=== PATIENT | female | born 1955 | race Caucasian/White ===

== ENCOUNTER 2017-07-21 17:41 | Emergency (ER) | payer OTHER ==
[2017-07-21 17:54] VITALS: TEMP 98
--- NOTE | 2017-07-21 17:59 | EDPHY ---
H & P Time Seen by Provider: 07/21/17 17:45 HPI/ROS: HPI Fell from horse. Head injury. 62-year-old female by private vehicle with her . This patient was riding a horse at about 4:30 p.m.. This is a force that she is used to riding. She was thrown from the horse. She was wearing a helmet. She landed on her right buttock and hit the right side of her head on a dirt surface. She complains of a dull right sided headache and pain involving her right buttock area. No neck pain. She denies any loss of consciousness. No changes in vision. No back pain. No weakness or altered sensation in her extremities. No other complaint. She is not on any anticoagulants or antiplatelet agents. ROS: Constitutional: No fever, no chills. No weakness. Eyes: No discharge. No changes in vision. ENT: No sore throat. No nasal congestion or rhinorrhea. Respiratory: No cough. No shortness of breath. Cardiac: No chest pain, no palpitations. Gastrointestinal: No abdominal pain, no vomiting, no diarrhea. Genitourinary: No hematuria. No dysuria or increased frequency with urination. Musculoskeletal: No back pain. No neck pain. As above. Denies extremity pain other than noted. Skin: No rashes. Neurological: As above. No focal weakness or altered sensation. Past medical history: History of breast cancer with chemotherapy and bilateral mastectomies, anxiety and insomnia. 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 Social history: Nonsmoker. Here with her . No alcohol. Physical Exam: General Appearance: Alert, no distress. This patient is responding to questions appropriately and in full sentences. This patient appears well- hydrated and well-nourished. Head: Normocephalic atraumatic. I do not appreciate any hematoma or bony deformity or other abnormality. Face: Facial bones are stable on palpation. Eyes: Pupils equal and round and reactive to light, no pallor or injection. No lid erythema or edema. ENT, Mouth: Mucous membranes moist. Dentition is intact. No malocclusion of the jaw. No tongue lacerations or abrasions. Pharynx is clear. The bilateral nasal canals are clear. No septal hematoma. Respiratory: There are no retractions, lungs are clear to auscultation with good air movement bilaterally. Chest wall is stable to AP and lateral palpation. Cardiovascular: Regular rate and rhythm. No murmur. Gastrointestinal: Abdomen is soft and nontender, no masses, bowel sounds normal. Neurological: Motor sensory function is intact. Cranial nerves are normal. Cerebellar function intact. Skin: Warm and dry, no rashes. No lacerations, abrasions or contusions. Musculoskeletal: Neck is supple and nontender. The trachea is midline. No midline cervical, thoracic, lumbar or sacral tenderness on palpation. No flank tenderness on palpation. Some tenderness on palpation to the right upper lateral gluteal area. No ecchymosis or other soft tissue abnormalities noted. Extremities are symmetrical, full range of motion. All joints in the bilateral upper and bilateral lower extremities range without pain or impingement. No tenderness on palpation of the long bones in the bilateral upper and bilateral lower extremities. Psychiatric: No agitation. No depression. Database: EKG: Imaging: CT head without contrast: Negative. Results were discussed with staff radiologist Dr. Avinash Mackey. Right hip x-ray series: Negative for fracture, subluxation, dislocation. Interpreted by me. Procedures: Emergency department course: Vital signs reviewed. She is not requiring any pain medication at this time. She was sent for CT imaging and x-rays. 6:40 p.m., patient re-evaluated. Resting comfortably at this time. Results of CT scan and x-ray discussed with her. She is up and ambulatory without difficulty. She feels comfortable going home with her and I think she is safe for discharge. Follow-up and return to emergency department precautions reviewed. Head injury precautions reviewed. All of her questions were answered. She was discharged in good condition. Differential Diagnosis: The differential diagnosis on this patient includes but is not limited to head injury, possible concussion syndrome, right gluteal contusion. Traumatic brain injury, subdural hematoma, epidural hematoma, subarachnoid hemorrhage, cervical spine injury, hip fracture unlikely. This represents a partial list of diagnoses considered. These considerations are based on history, physical exam , past history, reassessment and diagnostic testing. Constitutional: Initial Vital Signs Temperature (C) 36.6 C 07/21/17 17:50 Heart Rate 87 07/21/17 17:50 Respiratory Rate 18 07/21/17 17:50 Blood Pressure 136/84 H 07/21/17 17:50 O2 Sat (%) 97 07/21/17 17:50 O2 Delivery Mode Room Air Allergies/Adverse Reactions: No Known Allergies Allergy (Unverified 06/25/13 13:23) Home Medications: Medication Instructions Recorded Ambien 5MG (RX) 06/25/13 Cyclobenzaprine [Flexeril 10 MG 5 mg PO TID #20 tab 06/25/13 (RX)] Ativan 07/21/17 Medical Decision Making - Diagnostics Imaging Results: Imaging Impressions Head CT 07/21/17 17:51 Impression: Normal. Findings and recommendations discussed with Jannet Baez MD at 1822 hour, 07/21/2017. Final report concurs with initial preliminary interpretation. Departure - Departure Disposition: Home, Routine, Self-Care Clinical Impression: Head injury, Right gluteal contusion Condition: Good Instructions: Head Injury (ED), Contusion in Adults (ED) Additional Instructions: Read and follow provided instructions. Follow-up with your primary care physician in 1-2 days for re-evaluation. Ibuprofen dosin mg every 6 hours with meals for the next 3 days only. Take only as needed for pain. Axtell/Percocet dosin-2 every 4-6 hours for pain[address] Do not drive on this medication. Return to the emergency department for worsening headache, confusion, vomiting, worsening pain, difficulty walking or other serious concerns. Referrals: NONE *PRIMARY CARE P,. [Primary Care Provider] - As per Instructions
[2017-07-21] MEDS ORDERED: OXYCODONE/APAP 5/325 TAB PO ONE (18:44)
[2017-07-21] MEDS ORDERED: OXYCODONE/APAP 5/325MG PREPACK#4 BTL TAKEHOME ONE (18:50)
[2017-07-21 19:00] VITALS: BP 116/74; PULSE 76; RESP 16; O2SAT 95
== END 2017-07-21 18:59 | disposition home or self-care (01) ==
LOC: CED 17:41
DX: S09.90XA Unspecified injury of head, initial encounter (principal); S30.0XXA Contusion of lower back and pelvis, initial encounter; V80.010A Animal-rider injured by fall from or being thrown from horse in noncollision accident, initial encounter; Y92.69 Other specified industrial and construction area as the place of occurrence of the external cause; Y99.8 Other external cause status; Y93.52 Activity, horseback riding; Z85.3 Personal history of malignant neoplasm of breast
CPT/HCPCS: 70450-PO; 73502-PO

== ENCOUNTER → 2018-07-06 | Outpatient (CLI) | payer OTHER | LOC: BMCIMAGING 09:27 | PROVIDERS: ATTEND Physician Assistant Medical | DX: R05 Cough (principal) ==

== ENCOUNTER 2018-11-28 07:38 | Inpatient (IN) | payer OTHER ==
[2018-11-28 08:07] LABS: PLATELET COUNT 343 10^3/uL (150-400)
--- NOTE | 2018-11-28 08:12 | EDPHY ---
H & P Time Seen by Provider: 11/28/18 07:41 HPI/ROS: CHIEF COMPLAINT: Expressive aphasia, stroke alert Limitations: aphasia HISTORY OF PRESENT ILLNESS: 63-year-old female with breast cancer presents with expressive aphasia. first noted expressive aphasia yesterday evening at 2230. Difficulty forming sentences and explaining what she needed. Pt stayed in bed most of the day yesterday and he did not see her during the day. This morning, she was in the bathroom repeatedly turning on and off the bath tub water. She was unable to tell him her name or answer any questions. History of localized breast cancer 5 years ago. Excessive lethargy lately, mainly staying in bed throughout the day, thought secondary to depression by . REVIEW OF SYSTEMS: unable to obtain Source: Family - Medical/Surgical History Other PMH: bilat masectomy/ breast ca/ ortho-lt ankle/hyst/insommia/anxiety/ depression - Social History Smoking Status: Never smoked Additional Social History: - Physical Exam Exam: General Appearance: Alert, unable to speak, able to nod to yes/no questioning Eyes: Pupils equal and round, no conjunctival pallor or injection ENT, Mouth: Mucous membranes moist Neck: Normal inspection Respiratory: Lungs are clear to auscultation Cardiovascular: Regular rate and rhythm Gastrointestinal: Abdomen is soft and nontender Neurological: Alert, unable to follow commands, able to hold all extremities up against gravity for 5 sec when I lift the extremity for her Skin: Warm and dry Extremities: Normal inspection Psychiatric: Unable to determine Constitutional: Initial Vital Signs Temperature (C) 37.1 C 11/28/18 07:58 Heart Rate 73 11/28/18 07:58 Respiratory Rate 18 11/28/18 07:58 Blood Pressure 137/80 H 11/28/18 07:58 O2 Sat (%) 98 11/28/18 07:58 O2 Delivery Mode Room Air Allergies/Adverse Reactions: No Known Allergies Allergy (Verified 11/28/18 08:59) Home Medications: Medication Instructions Recorded ZOLPIDEM TARTRATE [Ambien CR 12.5 12.5 mg PO HS PRN 10/14/13 mg] LORazepam [Ativan (*)] 1 - 3 mg PO DAILY PRN 07/21/17 Cyclobenzaprine [Flexeril 10 MG 10 mg PO TID PRN 11/28/18 (RX)] Ibuprofen [Motrin (*)] 200 mg PO DAILY PRN 11/28/18 Liothyronine Sodium [Cytomel 5 mcg 5 mcg PO DAILY 11/28/18 (*)] Medical Decision Making - Diagnostics Imaging Results: CT brain: left frontal mass with mass effect Imaging: Discussed imaging studies w/ environmental research project manager Radiologist, I viewed and interpreted images myself ED Course/Re-evaluation: This patient presents as a stroke alert. However, onset of symptoms was yesterday evening at 10:30 p.m., which puts her outside the window for IV tPA. In addition, a noncontrast CT scan of the brain reveals a large left sided tumor with mass effect, consistent with primary tumor vs metastatic disease. This explains her global sx today, and I doubt that sx are secondary to CVA. Results d/w pt and . MRI brain ordered. The hospitalist service was consulted for admission. Pt's neuro status unchanged on serial exams x 2. Differential Diagnosis: Altered mental status including but not limited to hypoglycemia, infectious process, electrolyte abnormality, head injury, CVA, and intoxicants. - Data Points Laboratory Results: Laboratory Results 11/28/18 07:45 11/28/18 07:45 Medications Given: Dexamethasone (Decadron Injection) 4 mg IVP Q6HRS RIGO Stop: 05/27/19 17:59 Last Admin: 11/30/18 05:27 Dose: 4 mg Enoxaparin Sodium (Lovenox) 40 mg SC DAILY RIGO Stop: 05/28/19 08:59 Last Admin: 11/29/18 11:27 Dose: Not Given Liothyronine Sodium (Cytomel) 5 mcg PO DAILY RIGO Stop: 05/28/19 08:59 Last Admin: 11/29/18 08:14 Dose: 5 mcg Discontinued Medications Dexamethasone (Decadron Injection) 10 mg IVP ONCE ONE Stop: 11/28/18 13:03 Last Admin: 11/28/18 15:00 Dose: 10 mg Ibuprofen (Motrin) 200 mg PO DAILY PRN PRN Reason: Headache Stop: 05/27/19 16:06 Last Admin: 11/28/18 21:00 Dose: 200 mg Point of Care Test Results: Chemistry 11/28/18 11/28/18 07:58 07:44 POC Sodium 141 mEq/L mEq/L (135-145) POC Potassium 3.8 mEq/L mEq/L (3.3-5.0) POC Chloride 103 mEq/L mEq/L (97-110) POC Total CO2 22 mEq/L mEq/L (22-31) POC BUN 14 mg/dL mg/dL (7-23) POC Creatinine 0.6 mg/dL mg/dL (0.6-1.0) POC Glucose 131 mg/dL H mg/dL (70-100) POC Troponin I 0.00 ng/mL ng/mL (0.00-0.08) ISTAT H&H 11/28/18 07:44 POC Hgb 15.0 gm/dL gm/dL (12.6-16.3) POC Hct 44 % % (38-47) Departure - Departure Disposition: [facility] Clinical Impression: Frontal mass of brain, Aphasia Condition: Serious
[2018-11-28 08:15] LABS: INR 1.09 (0.83-1.16); PROTIME(PATIENT) 13.7 SEC (12.0-15.0)
[2018-11-28] MEDS ORDERED: ONDANSETRON 4 MG/2 ML VIAL IVP PRN (09:02)
[2018-11-28] MEDS ORDERED: ONDANSETRON DISINTEGRATING 4 MG TAB PO PRN (09:02)
[2018-11-28] MEDS ORDERED: GADOBUTROL 10 ML VIAL IVP ONE (09:49)
[2018-11-28] MEDS ORDERED: DEXAMETHASONE 10 MG/ML VIAL IVP ONE (13:02)
--- NOTE | 2018-11-28 15:06 | CPEKG ---
Test Reason : OPEN Blood Pressure : / mmHG Vent. Rate : 072 BPM Atrial Rate : 072 BPM P-R Int : 155 ms QRS Dur : 089 ms QT Int : 400 ms P-R-T Axes : 069 068 054 degrees QTc Int : 438 ms Sinus rhythm Confirmed by Marium Medina ([id number]) on 11/28/2018 3:05:59 PM Referred By: Marium Medina Confirmed By:Marium Medina
--- NOTE | 2018-11-28 16:00 | PDGENHP ---
History and Physical - Chief Complaint Aphasia - History of Present Illness Ivone Wong is a 63 yo F with a PMHX of Breast cancer s/p chemo and b/l mastectomy in 2013, hypothyroidism who presents to [facility] for aphasia. Patient's is at bedside who has helped with hx taking due to patient's condition. She is able to answer yes/no questions but has difficulty formulating full sentences. They report that patient was in normal state of health until yesterday evening when patient had difficulty with word finding and completing full sentences. They deny any facial droop, weakness, numbness/tingling, vision /hearing changes. Patient does report daily headaches recently which she has usually but not as frequently. She takes Aleve for the headaches which helps. She had no improvement in her symptoms overnight until this morning so her brought her to the ED. She denies f/c, n/v, d/c, chest pain, SOB, edema , palpitations. History Information - Allergies/Home Medication List Allergies/Adverse Reactions: No Known Allergies Allergy (Verified 11/28/18 08:59) Home Medications: ZOLPIDEM TARTRATE [Ambien CR 12.5 mg] 12.5 mg PO HS PRN 06/25/13 [Last Taken ] LORazepam [Ativan (*)] 1 - 3 mg PO DAILY PRN 07/21/17 [Last Taken 11/27/18] Cyclobenzaprine [Flexeril 10 MG (RX)] 10 mg PO TID PRN 11/28/18 [Last Taken ] Ibuprofen [Motrin (*)] 200 mg PO DAILY PRN 11/28/18 [Last Taken Unknown] Liothyronine Sodium [Cytomel 5 mcg (*)] 5 mcg PO DAILY 11/28/18 [Last Taken ] I have personally reviewed and updated: family history, medical history, social history, surgical history - Past Medical History cancer - Surgical History Reports: mastectomy - Family History Positive for: non-pertinent - Social History Smoking Status: Never smoked Review of Systems Review of Systems: ROS: 10pt was reviewed & negative except for what was stated in HPI & below Physical Exam Physical Exam: Temp Pulse Resp BP Pulse Ox 36.8 C 69 16 130/77 H 96 11/28/18 15:36 11/28/18 15:36 11/28/18 15:36 11/28/18 15:36 11/28/18 15:36 Constitutional: no apparent distress Eyes: PERRL Ears, Nose, Mouth, Throat: moist mucous membranes Cardiovascular: regular rate and rhythym Respiratory: no respiratory distress Gastrointestinal: normoactive bowel sounds Skin: warm Musculoskeletal: full muscle strength Neurologic: AAOx3, other (word finding difficulties ), No weakness Psychiatric: anxious Lab Data & Imaging Review 11/28/18 07:45 11/28/18 07:45 WBC 13.32 10^3/uL (3.80-9.50) H 11/28/18 07:45 RBC 5.07 10^6/uL (4.18-5.33) 11/28/18 07:45 Hgb 15.3 g/dL (12.6-16.3) 11/28/18 07:45 POC Hgb 15.0 gm/dL (12.6-16.3) 11/28/18 07:44 Hct 46.5 % (38.0-47.0) 11/28/18 07:45 POC Hct 44 % (38-47) 11/28/18 07:44 MCV 91.7 fL (81.5-99.8) 11/28/18 07:45 MCH 30.2 pg (27.9-34.1) 11/28/18 07:45 MCHC 32.9 g/dL (32.4-36.7) 11/28/18 07:45 RDW 12.0 % (11.5-15.2) 11/28/18 07:45 Plt Count 343 10^3/uL (150-400) 11/28/18 07:45 MPV 10.6 fL (8.7-11.7) 11/28/18 07:45 Neut % (Auto) 86.2 % (39.3-74.2) H 11/28/18 07:45 Lymph % (Auto) 10.4 % (15.0-45.0) L 11/28/18 07:45 [place] % (Auto) 2.6 % (4.5-13.0) L 11/28/18 07:45 Eos % (Auto) 0.0 % (0.6-7.6) L 11/28/18 07:45 Baso % (Auto) 0.3 % (0.3-1.7) 11/28/18 07:45 Nucleat RBC Rel Count 0.0 % (0.0-0.2) 11/28/18 07:45 Absolute Neuts (auto) 11.50 10^3/uL (1.70-6.50) H 11/28/18 07:45 Absolute Lymphs (auto) 1.38 10^3/uL (1.00-3.00) 11/28/18 07:45 Absolute Monos (auto) 0.34 10^3/uL (0.30-0.80) 11/28/18 07:45 Absolute Eos (auto) 0.00 10^3/uL (0.03-0.40) L 11/28/18 07:45 Absolute Basos (auto) 0.04 10^3/uL (0.02-0.10) 11/28/18 07:45 Absolute Nucleated RBC 0.00 10^3/uL (0-0.01) 11/28/18 07:45 Immature Gran % 0.5 % (0.0-1.1) 11/28/18 07:45 Immature Gran # 0.06 10^3/uL (0.00-0.10) 11/28/18 07:45 PT 13.7 SEC (12.0-15.0) 11/28/18 07:45 INR 1.09 (0.83-1.16) 11/28/18 07:45 APTT 28.8 SEC (23.0-38.0) 11/28/18 07:45 POC Sodium 141 mEq/L (135-145) 11/28/18 07:44 Sodium 139 mEq/L (135-145) 11/28/18 07:45 POC Potassium 3.8 mEq/L (3.3-5.0) 11/28/18 07:44 Potassium 4.3 mEq/L (3.5-5.2) 11/28/18 07:45 POC Chloride 103 mEq/L (97-110) 11/28/18 07:44 Chloride 103 mEq/L (97-110) 11/28/18 07:45 Carbon Dioxide 23 mEq/l (22-31) 11/28/18 07:45 POC Total CO2 22 mEq/L (22-31) 11/28/18 07:44 Anion Gap 13 mEq/L (6-14) 11/28/18 07:45 POC BUN 14 mg/dL (7-23) 11/28/18 07:44 BUN 15 mg/dL (7-23) 11/28/18 07:45 Creatinine 0.7 mg/dL (0.6-1.0) 11/28/18 07:45 POC Creatinine 0.6 mg/dL (0.6-1.0) 11/28/18 07:44 Estimated GFR > 60 11/28/18 07:45 Glucose 124 mg/dL (70-100) H 11/28/18 07:45 POC Glucose 131 mg/dL (70-100) H 11/28/18 07:44 Calcium 9.8 mg/dL (8.5-10.4) 11/28/18 07:45 POC Troponin I 0.00 ng/mL (0.00-0.08) 11/28/18 07:58 Assessment & Plan Assessment: 1. Brain Mass - CT Head noted large L sided mass w/ mass effect on admission - MRI Brain performed which shows large irregular peripherally enhancing mass L frontal lobe with irregular marginal nodular enhancement as well as enhancing lesion L posteroir frontal lobe periventricular location, findings most compatible with glioblastoma multiform, metastatic lesion is felt to be possible but less likely per radiology read - Neurosurgery consulted, recommending Decadron 10 mg IVP then 4 mg q6 hours - CT C/A/P ordered to evaluate for primary/metastatic disease - F/u neurosurgery recommendations - PT/OT/OPERATOR ASSISTANT I CEMENTING ordered 2. Aphasia - 2/2 to brain mass as above - OPERATOR ASSISTANT I CEMENTING consult 3. Leukocytosis - in setting of brain mass with mass effect - Continue to monitor, now patient on steroids as well 4. Breast Cancer - S/p chemo and b/l mastectomy in 2014 - Follows with [facility] - CT CAP as above - Will consult oncology pending workup 5. Hypothyroidism - Continue home meds FEN: Regular DVT PPx: Lovenox Code: FULL Dispo: Admit to Medicine
[2018-11-28] MEDS ORDERED: CYCLOBENZAPRINE 10 MG TAB PO PRN (16:07)
[2018-11-28] MEDS ORDERED: IBUPROFEN 200 MG TAB PO PRN (16:07)
[2018-11-28] MEDS ORDERED: LORazepam 1 MG TAB PO PRN (16:07)
[2018-11-28] MEDS ORDERED: IOPAMIDOL (ISOVUE-300) 100 ML BTL ONE (16:10)
[2018-11-28] MEDS ORDERED: ZOLPIDEM TARTRATE 5 MG TAB PO PRN (16:13)
--- NOTE | 2018-11-28 17:35 | PDMN ---
Medical Necessity Medical necessity: Pt meets inpt criteria per MD order and Neurology GRG. 63 y/ o w/hx breast ca s/p chemo and b/l mastectomy in 2013 presents to ED w/aphasia, admitted w/new dx brain mass. CT shows large L sided mass, MRI w/findings most compatible w/glioblastoma multiform. Neurosurg consulted, IV Decadron, PT/OT/ INSULATION INSPECTOR evals pending, CT C/A/P pending, anticipate>2MN for further workup/ management of above.
--- NOTE | 2018-11-28 17:38 | GCON ---
[f rep st] CONSULTATION DATE OF CONSULTATION: 11/28/2018 REASON FOR CONSULTATION: Aphasia with new left frontal mass. HOSPITAL COURSE/HISTORY/MAJOR MEDICAL FINDINGS: The patient is a 63-year-old female who presented to [facility] emergency room today with new onset expressive aphasia. Per her last night, she was having some word- finding difficulties, but has never had this problem before. She does have a history of breast cancer that is managed by Dr. Burgess young at [facility] and had a bilateral mastectomy and chemotherapy in 2013. Her states that since that time, she has not had any recurrences to their knowledge. She denies any weakness. The patient is having both expressive aphasia and receptive aphasia as well. She is not able to appropriately follow all of my command requests. She denies any new onset of vision or hearing loss. Denies any weakness. PAST MEDICAL HISTORY: Significant for hypothyroidism, history of bilateral mastectomy. FAMILY HISTORY: Significant for breast cancer in her mother. She denies any family history of diabetes or heart disease. SOCIAL HISTORY: The patient has never smoked tobacco products. She does drink 2 to 3 alcoholic beverages per day. Her is at bedside with her. ALLERGIES: No known drug allergies. HOME MEDICATIONS: Include Ambien 12.5 mg 1 p.o. q.h.s. p.r.n., Ativan 1 to 3 mg p.o. daily, Flexeril 10 mg 1 p.o. p.r.n. muscle spasm, ibuprofen 200 mg p.r.n. pain, and Cytomel 5 mcg p.o. daily. PHYSICAL EXAM: VITAL SIGNS: BP is 130/77, heart rate is 69. She is 96% on room air. Temp is 36.8. GENERAL: The patient is in no acute distress. NEUROLOGIC: Her face appears symmetric and her EOMIs are intact, but when asked to stick out her tongue, she just says no, and when asked to frown or smile on command, she is unable to do so. Her line maintenance technician is 5/5 bilaterally. Her deltoids, triceps, biceps, wrist flexors, extensors, interossei, intrinsic line maintenance technician , iliopsoas, hamstrings, quadriceps, plantar flexion, dorsiflexion, and EHL are also 5/5. Sensation is intact in bilateral upper and bilateral lower extremities. Patient does appear to be having both receptive and expressive aphasia. Will answer yes or no to questions, but is able to tell me how many fingers I am holding up correctly and identify some, but not all objects. DIAGNOSTIC REVIEW: Patient underwent a head CT, which demonstrated a large left frontal mass, which is suspicious for a primary versus metastatic neoplasm. Patient underwent a brain MRI, which demonstrates a large irregular peripherally enhancing mass in the left frontal lobe measuring approximately 3.6 x 4 x 3.5 cm. There is additional irregular peripheral masses, enhancing nodules on the medial aspect measuring 13 mm and a posterior medial aspect nodule measuring 10 mm. There is an additional focus of enhancement seen along the left posterior frontal lobe in the periventricular white matter and there is about 6 mm of [id number] midline shift. ASSESSMENT AND PLAN: The patient is a 63-year-old female who has a past medical history consistent with breast cancer that was treated in 2013, with chemotherapy and mastectomy. She developed expressive and receptive aphasia today and came to her local emergency room. Imagingdemonstrated a large irregular mass within the left frontal lobe with surrounding vasogenic edema causing brain compression and midline shift. There are also other scattered nonspecific hyperintense T2 FLAIR signal abnormalities and potential irregular peripheral enhancing nodules noted. The patient was given Decadron 10 mg about an hour ago. We will see how this affects her speech. She is also placed on 4 mg q.6. She will be seen by Dr. Oleary's later today. I did discuss with the patient that in order to appropriately proceed with treatment, we will need to do some further investigation, including CT scan of the chest, abdomen and pelvis. Those have been ordered, as well as potentially getting a biopsy of this location. Discussed with the patient and her that biopsies involving brain masses typically also include resection and the patient requires general anesthesia and a craniotomy to access this area. They are understanding with the plan. They will further discuss this with her primary oncologist, Dr. Huynh at [facility] as well as she is well known to her case. STAFF ADDENDUM: I spoke to Ivone and her for quite some time regarding the findings and possible diagnoses. Depending on the results of her CT chest/abdomen/pelvis , I think proceeding with surgical resection of the frontal mass will likely be the next step. I told them that I am not sure that this will make her speech better, but I also do not expect it to get better without intervention. The imaging appearance is that of Glioblastoma, and we discussed the prognosis and treatment options of this extensively. We will tentatively plan surgery for . I answered all of their questions to the best of my ability. /[id number]/MODL MTDD
[2018-11-28] MEDS: DEXAMETHASONE 4 MG/ML VIAL IVP SCH ×2 (17:49→23:25)
[2018-11-29] MEDS: DEXAMETHASONE 4 MG/ML VIAL IVP SCH ×4 (05:32→23:49)
[2018-11-29] MEDS: LIOTHYRONINE SODIUM 5 MCG TAB PO SCH (08:14)
--- NOTE | 2018-11-29 08:55 | SOAPPROG ---
SOAP Progress Note Assessment/Plan: Assessment: 63 yo female with aphasia and left frontal brain mass suspicious for GBM. Also has h/o breast CA with mastectomy Patient and wish to proceed with surgery tomorrow. Plan: NPO tonight for surgery AM. PT/OT/ST 11/29/18 08:50 Subjective: Lying in bed, comfortable. Cannot speak except saying "okay." present and involved. No new issues other than expressive aphasia Objective: Vital Signs Temp Pulse Resp BP Pulse Ox 36.8 C 67 17 122/72 H 93 11/29/18 07:16 11/29/18 07:16 11/29/18 07:16 11/29/18 07:16 11/29/18 07:16 PT 13.7 SEC (12.0-15.0) 11/28/18 07:45 INR 1.09 (0.83-1.16) 11/28/18 07:45 Neuro: Awake, alert Aphasic follows commands PERRLA, EOMI no facial droop no pronator drift equal strength bilat upper/lower ext sens +LT throughout ICD10 Worksheet Patient Problems: Problems Problem Status Onset Brain abscess, tuberculous, with histological diagnosis Acute Frontal mass of brain Acute - ICD10 Problem Qualifiers (1) Brain abscess, tuberculous, with histological diagnosis (2) Frontal mass of brain
[2018-11-29] MEDS ORDERED: ENOXAPARIN 40 MG/0.4 ML SYR SC SCH (09:00)
--- NOTE | 2018-11-29 11:24 | ASMTCMCOM ---
CM Note CM Note Notes: Pt with hx breast CA 5 years ago has brain tumor. Pt to have biopsy tomorrow. RADIO DISC JOCKEY rec inpatient rehab, PT/OT to eval when appropriate. Pt resides with . CM to follow for d/c planning. Date Signed: 11/29/2018 11:23 AM Electronically Signed By:JORDY Giordano
--- NOTE | 2018-11-29 15:16 | HOSPPROG ---
Hospitalist Progress Note Assessment/Plan: 1. Brain Mass - CT Head noted large L sided mass w/ mass effect on admission - MRI Brain performed which shows large irregular peripherally enhancing mass L frontal lobe with irregular marginal nodular enhancement as well as enhancing lesion L posteroir frontal lobe periventricular location, findings most compatible with glioblastoma multiform, metastatic lesion is felt to be possible but less likely per radiology read - Neurosurgery consulted, recommending Decadron 10 mg IVP then 4 mg q6 hours, will take to OR tomorrow AM for surgical resection - CT C/A/P ordered to evaluate for primary/metastatic disease which was negative - PT/OT/ELECTRICAL TECH ordered 2. Aphasia - 2/2 to brain mass as above - ELECTRICAL TECH consult 3. Leukocytosis - in setting of brain mass with mass effect - Continue to monitor, now patient on steroids as well 4. Breast Cancer - S/p chemo and b/l mastectomy in 2013 - Follows with [facility] - CT CAP as above - Will consult oncology pending pathology from surgical resection 5. Hypothyroidism - Continue home meds FEN: Regular DVT PPx: Lovenox Code: FULL Dispo: Pending clinical course Subjective: Patient still having word finding difficulties this AM Objective: Vital Signs Temp Pulse Resp BP Pulse Ox 36.8 C 70 16 102/70 94 11/29/18 11:21 11/29/18 11:21 11/29/18 11:21 11/29/18 11:21 11/29/18 11:21 PT 13.7 SEC (12.0-15.0) 11/28/18 07:45 INR 1.09 (0.83-1.16) 11/28/18 07:45 - Physical Exam Constitutional: no apparent distress Eyes: PERRL Ears, Nose, Mouth, Throat: moist mucous membranes Cardiovascular: regular rate and rhythym Respiratory: no respiratory distress Gastrointestinal: soft, non-tender abdomen Skin: warm Musculoskeletal: full muscle strength Neurologic: No AAOx3, No CN II-XII Intact Psychiatric: interacting appropriately ICD10 Worksheet Patient Problems: Problems Problem Status Onset Brain abscess, tuberculous, with histological diagnosis Acute Frontal mass of brain Acute
[2018-11-30] MEDS: DEXAMETHASONE 4 MG/ML VIAL IVP SCH ×4 (05:27→23:33)
[2018-11-30] MEDS ORDERED: ceFAZolin 2 GM/DEXTROSE 100 ML IV ONE (08:00)
[2018-11-30] MEDS ORDERED: LR 1,000 ML IV ONE (08:40)
[2018-11-30] MEDS ORDERED: MANNITOL 20% 100 GM/500 ML BAG IV ONE (09:10)
[2018-11-30] MEDS ORDERED: THROMBIN (BOVINE) 5,000 UNIT VIAL TP ONE (09:10)
[2018-11-30] MEDS ORDERED: BACITRACIN ZINC 0.5 OZ OINTTUBE TP ONE (09:10)
[2018-11-30] MEDS ORDERED: SURGIFLO MATRIX KIT WITH THROMBIN 8 ML TP ONE (09:10)
[2018-11-30] MEDS ORDERED: HYDROGEN PEROXIDE 236 ML BOTTLE TP ONE (09:10)
[2018-11-30] MEDS ORDERED: CHLORHEXIDINE GLUC HIBICLENS 118 ML BTL TP ONE (09:10)
[2018-11-30] MEDS ORDERED: GENTAMICIN SULFATE 80 MG/2 ML VIAL ONE ×2 (09:11→09:57)
[2018-11-30] MEDS ORDERED: POVIDONE-IODINE 30 GM OINTTUBE TP ONE (09:11)
[2018-11-30] MEDS ORDERED: BUPIVACAINE 0.25% 30 ML SDV ONE (09:11)
[2018-11-30] MEDS ORDERED: AVITENE POWDER 1 GM JAR TP ONE (09:11)
[2018-11-30] MEDS ORDERED: EPINEPHrine 1 MG/ML INJ ONE (09:12)
[2018-11-30] MEDS ORDERED: REMIFENTANIL HCL 1 MG VIAL ONE (09:15)
[2018-11-30] MEDS ORDERED: PROPOFOL/EMULSION 500 MG/50 ML BOTTLE IV ONE (09:15)
[2018-11-30] MEDS ORDERED: fentaNYL 100 MCG/2 ML INJ ONE ×4 (09:15→13:33)
[2018-11-30] MEDS ORDERED: PROPOFOL 200 MG/20 ML VIAL ONE (09:15)
--- NOTE | 2018-11-30 09:23 | PDANEPAE ---
ANE Past Medical History - Cardiovascular History Hx Hypertension: No Hx Arrhythmias: No Hx Chest Pain: Yes Hx Coronary Artery / Peripheral Vascular Disease: No Hx CHF / Valvular Disease: No Cardiovascular History Comment: Chest pain sounds muskuloskeletal related to prior mastectomy. Functional status > 4 mets. EKG NSR - Pulmonary History Hx COPD: No Hx Oxygen in Use at Home: No Hx Sleep Apnea: No Sleep Apnea Screening Result - Last Documented: Negative - Endocrine History Hx Diabetes: No Hypothyroid: Yes - Renal History Hx Renal Disorders: No - Liver History Hx Hepatic Disorders: No - Neurological & Psychiatric Hx Hx Neurological and Psychiatric Disorders: Yes Neurological / Psychiatric History Comment: Left frontal lobe mass, speech affected - Cancer History Hx Cancer: Yes Cancer History Comment: Breast CA s/p 2 chemo sessions ANE Review of Systems Review of Systems: - Exercise capacity Exercise capacity: >=4 METS ANE Patient History - Allergies Allergies/Adverse Reactions: No Known Allergies Allergy (Verified 11/28/18 08:59) - Home Medications Home medications: home medication list seen and reviewed Home Medications: ZOLPIDEM TARTRATE [Ambien CR 12.5 mg] 12.5 mg PO HS PRN 06/25/13 [Last Taken ] LORazepam [Ativan (*)] 1 - 3 mg PO DAILY PRN 07/21/17 [Last Taken 11/27/18] Cyclobenzaprine [Flexeril 10 MG (RX)] 10 mg PO TID PRN 11/28/18 [Last Taken ] Ibuprofen [Motrin (*)] 200 mg PO DAILY PRN 11/28/18 [Last Taken Unknown] Liothyronine Sodium [Cytomel 5 mcg (*)] 5 mcg PO DAILY 11/28/18 [Last Taken ] - NPO status NPO Since - Liquids (Date): 11/29/18 NPO Since - Liquids (Time): 23:50 NPO Since - Solids (Date): 11/29/18 NPO Since - Solids (Time): 17:30 - Smoking Hx Smoking Status: Never smoked ANE Labs/Vital Signs - Labs Result Diagrams: 11/28/18 07:45 11/28/18 07:45 - Vital Signs Vital Signs: reviewed preoperatively; see RN documention for details Blood Pressure: 124/72 Heart Rate: 76 Respiratory Rate: 16 O2 Sat (%): 94 Height: 162.56 cm Weight: 56.699 kg ANE Physical Exam - Airway Neck exam: FROM Mallampati Score: Class 1 Mouth exam: normal dental/mouth exam - Pulmonary Pulmonary: clear to auscultation - Cardiovascular Cardiovascular: regular rate and rhythym - ASA Status ASA Status: IV ANE Anesthesia Plan Anesthesia Plan: general endotracheal anesthesia Lines/Monitors: arterial line, additional IV
[2018-11-30] MEDS ORDERED: PHENYLEPHRINE 10 MG/ML SDV ONE (09:29)
[2018-11-30] MEDS ORDERED: ROCURONIUM 50 MG/5 ML VIAL ONE ×2 (10:15→10:24)
[2018-11-30] MEDS ORDERED: ePHEDrine SULFATE 25 MG/5 ML SYR ONE (10:17)
[2018-11-30] MEDS ORDERED: DEXAMETHASONE 4 MG/ML VIAL ONE ×3 (10:24)
[2018-11-30] MEDS ORDERED: PETROLAT,WHT/MIN OIL/SOD CHL 3.5 GM OPHT.OINT ONE (10:29)
[2018-11-30] MEDS ORDERED: GLYCOPYRROLATE 0.2 MG/1 ML VIAL ONE (10:36)
[2018-11-30] MEDS ORDERED: ONDANSETRON 4 MG/2 ML VIAL ONE (12:42)
[2018-11-30] MEDS ORDERED: fentaNYL 100 MCG/2 ML INJ IVP PRN (12:52)
[2018-11-30] MEDS ORDERED: LR 500 ML IV PRN (12:52)
[2018-11-30] MEDS ORDERED: MEPERIDINE 25 MG/0.5 ML AMP IVP PRN (12:52)
[2018-11-30] MEDS ORDERED: HYDROmorphONE/DILAUDID 2 MG/ML INJ IVP PRN (12:52)
[2018-11-30] MEDS ORDERED: ALBUTEROL 3 ML DEYVIAL IH PRN (12:52)
[2018-11-30] MEDS ORDERED: PHENYLEPHRINE HCL 100 MCG/ML SYR IVP PRN (12:52)
[2018-11-30] MEDS ORDERED: NALOXONE HCL 0.4 MG/ML INJ IVP PRN (12:52)
[2018-11-30] MEDS ORDERED: ONDANSETRON 4 MG/2 ML VIAL IVP PRN (12:52)
[2018-11-30] MEDS ORDERED: LABETALOL HCL 5 MG/ML 20 ML MDV IVP PRN (12:52)
[2018-11-30] MEDS ORDERED: METOCLOPRAMIDE 10 MG/2 ML VIAL IVP PRN (12:52)
[2018-11-30] MEDS ORDERED: PROMETHAZINE HCL 25 MG/ML INJ IVP PRN (12:52)
[2018-11-30] MEDS ORDERED: SUGAMMADEX SODIUM 200 MG/2 ML VIAL IVP ONE (12:59)
--- NOTE | 2018-11-30 13:51 | POSTOPPROG ---
Post Op Note Date of Operation: 11/30/18 Surgeon: Abiel Oleary Computer Programming Manager: Sarita Car PA-C (Damaris) Anesthesia: GET(General Endotracheal) Pre-op Diagnosis: left frontal brain mass Post-op Diagnosis: same Procedure: Left frontal craniotomy for resection of left frontal brain mass Inf/Abcess present in the surg proc area at time of surgery?: No Depth: Organ Space EBL: 50mL Complications: none observed SOAP Progress Note Assessment/Plan: Assessment: Plan: 63 yo female sp Left frontal craniotomy for resection of left frontal brain mass P: -Admit to ICU -Continue Decadron 4mg q6 for now -Keppra 750mg BID -Q2 hour neuro checks (may likely be aphasic still or worse) -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 PAGAN X4 Incision c/d/i 11/30/18 13:44 Objective: Vital Signs Temp Pulse Resp BP Pulse Ox 36.7 C 76 16 124/72 H 94 11/30/18 09:18 11/30/18 09:23 11/30/18 09:23 11/30/18 09:23 11/30/18 09:23 PT 13.7 SEC (12.0-15.0) 11/28/18 07:45 INR 1.09 (0.83-1.16) 11/28/18 07:45
[2018-11-30] MEDS ORDERED: levETIRAcetam 250 MG TAB PO ONE (14:30)
[2018-11-30] MEDS: LIOTHYRONINE SODIUM 5 MCG TAB PO SCH (14:47)
[2018-11-30] MEDS ORDERED: hydrALAZINE 20 MG/ML VIAL IVP PRN (15:00)
[2018-11-30] MEDS: NS W/ 20 KCl/L 1,000 ML IV SCH ×2 (15:05→23:39)
--- NOTE | 2018-11-30 16:08 | POSTANESTH ---
Post Anesthetic Evaluation Cardiovascular Status: Normal, Stable Respiratory Status: Normal, Stable Level of Consciousness/Mental Status: Can Participate in Eval Pain Control: Adequate, Prn Tx Ordered Nausea/Vomiting Control: Adequate, Prn Tx Ordered Complications Possibly Related to Anesthesia: None Noted
--- NOTE | 2018-11-30 16:47 | HOSPPROG ---
Hospitalist Progress Note Assessment/Plan: 1. Brain Mass - CT Head noted large L sided mass w/ mass effect on admission - MRI Brain performed which showed large irregular peripherally enhancing mass L frontal lobe with irregular marginal nodular enhancement as well as enhancing lesion L posteroir frontal lobe periventricular location, findings most compatible with glioblastoma multiform, metastatic lesion is felt to be possible but less likely per radiology read - Neurosurgery consulted, recommending Decadron 10 mg IVP then 4 mg q6 hours, OR this AM for surgical resection - CT C/A/P ordered to evaluate for primary/metastatic disease which was negative - PT/OT/ELEVATOR TENDER ordered 2. Aphasia - 2/2 to brain mass as above - ELEVATOR TENDER consult 3. Leukocytosis - in setting of brain mass with mass effect - Continue to monitor, now patient on steroids as well 4. Breast Cancer - S/p chemo and b/l mastectomy in 2013 - Follows with [facility] - [place] - CT CAP as above - Will consult oncology pending pathology from surgical resection 5. Hypothyroidism - Continue home meds FEN: Regular DVT PPx: Lovenox Code: FULL Dispo: Pending clinical course Subjective: Patient with no complaints this AM Objective: Vital Signs Temp Pulse Resp BP Pulse Ox 36.5 C 81 12 121/72 H 95 11/30/18 16:00 11/30/18 16:00 11/30/18 16:00 11/30/18 16:00 11/30/18 16:00 11/29/18 11/30/18 12/01/18 05:59 05:59 05:59 Intake Total 1300 Output Total 250 Balance 1050 PT 13.7 SEC (12.0-15.0) 11/28/18 07:45 INR 1.09 (0.83-1.16) 11/28/18 07:45 - Physical Exam Constitutional: no apparent distress Eyes: PERRL Ears, Nose, Mouth, Throat: moist mucous membranes Cardiovascular: regular rate and rhythym Respiratory: no respiratory distress Gastrointestinal: soft, non-tender abdomen Skin: warm Musculoskeletal: full muscle strength Neurologic: AAOx3, No CN II-XII Intact Psychiatric: interacting appropriately ICD10 Worksheet Patient Problems: Problems Problem Status Onset Aphasia Acute Brain abscess, tuberculous, with histological diagnosis Acute Frontal mass of brain Acute
[2018-11-30] MEDS: ceFAZolin 2 GM/DEXTROSE 100 ML IV SCH (17:37)
[2018-11-30] MEDS ORDERED: ceFAZolin 2 GM/DEXTROSE 100 ML IV SCH (22:00)
[2018-11-30] MEDS: levETIRAcetam 250 MG TAB PO SCH (23:39)
[2018-12-01] MEDS: ACETAMINOPHEN 325 MG TAB PO PRN ×2 (00:55→14:55)
[2018-12-01] MEDS: ceFAZolin 2 GM/DEXTROSE 100 ML IV SCH (00:57)
[2018-12-01] MEDS: DEXAMETHASONE 4 MG/ML VIAL IVP SCH ×4 (05:46→23:48)
[2018-12-01] MEDS: LIOTHYRONINE SODIUM 5 MCG TAB PO SCH (08:33)
[2018-12-01] MEDS: levETIRAcetam 250 MG TAB PO SCH ×2 (08:33→20:57)
[2018-12-01] MEDS ORDERED: GADOBUTROL 10 ML VIAL IVP ONE (09:02)
--- NOTE | 2018-12-01 10:42 | NEUSURGPN ---
Date of Surgery: 11/30/18 Post Op Day: 1 Assessment/Plan: 63 yo female sp Left frontal craniotomy for resection of left frontal brain mass POD#1. presenting symptoms were confusion and aphasia. still has some word finding difficulties post op but appears improved from prior exam. Confusion also clearing. P: -Post op MRI this am -plan for transfer to floor if MRI looks good -Continue Decadron 4mg q6 for another day or so. 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 at bedside and notices continued improvement in MS. Objective: NAD AAOx4 EOMI, PEARLA [id number] grossly intact incision cdi, dressed. Speech clear and fluent, word finding difficulty significant when occurs but not present when discussing familiar subjects no facial droop, no pronator drift MAEx4, 5/5= SILT - Physician Discussed Patient with : [facility] Physical Exam - Vitals, I&O, Labs I and O 11/30/18 12/01/18 12/02/18 05:59 05:59 05:59 Intake Total 3970 Output Total 1550 Balance 2420 Weight 60.7 kg Intake: Oral (ml) 1200 IV Intake (ml) 2500 IV Infused (ml) 270 NS W/ 20 KCl/L 1,000 ml @ 270 100 mls/hr IV CONT RIGO Rx#:[id number] Output: Urine (ml) 1500 Catheter 1300 Toilet 200 Estimated Blood Loss (ml) 50 Other: Number of Voids Toilet 1 Vital Signs Temp Pulse Resp BP Pulse Ox 37.2 C 52 L 16 112/64 92 12/01/18 05:00 12/01/18 08:00 12/01/18 08:00 12/01/18 08:00 12/01/18 08:00 ICD10 Worksheet Patient Problems: Problems Problem Status Onset Aphasia Acute Brain abscess, tuberculous, with histological diagnosis Acute Frontal mass of brain Acute
--- NOTE | 2018-12-01 12:06 | PDCONSULT ---
Business Process Analyst Note: Oncology consultation note Requesting provider: Dr. Jose Emery Reason for consultation: Newly diagnosed glioblastoma multiforme History of present illness: Ivone is a very pleasant 63-year-old female with history of stage II right- sided breast cancer who was admitted for aphasia found to have likely glioblastoma multiform rate. She initially was diagnosed with a right-sided breast cancer in September of 2013. She was stage II at the time T2 N0 M0 that was hormone receptor positive HER2 negative. She did receive Cytoxan and docetaxel for which she received 2 cycles and developed grade 3 neuropathy. She received lumpectomy and sentinel lymph node biopsy. She subsequently received bilateral mastectomies and YARIEL/BSO. It was attempted to give her endocrine therapy but had significant toxicities. About 1 month prior to admission she was having symptoms of headaches that were almost daily in nature. Then earlier this week she had an episode of expressive aphasia. She presented to [facility] Emergency Room. She eventually had an MRI of the brain that demonstrated a left frontal lobe mass that was up to 4 cm in size concerning for possible GBM. On 11/30/2018 she underwent a left craniotomy. Initial pathology is consistent with a glioma. Past medical and surgical history: History of stage II right-sided breast cancer, status post bilateral mastectomies as per above Left frontal lobe craniotomy as per above Family history: Mother with history of cancer in her 60s. No siblings with cancer. She does have 1 daughter. 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 She lives in [place] with her . She is a nonsmoker. Allergies: No known drug allergies. Review of systems: A 12 point review of system was obtained with otherwise negative unless stated in HPI. Medications: Reviewed in EMR. Physical examination: Temp Pulse Resp BP Pulse Ox 37.2 C 58 L 16 122/74 H 92 12/01/18 05:00 12/01/18 10:00 12/01/18 10:00 12/01/18 10:00 12/01/18 10:00 General: Accompanied by her and daughter in no acute distress, conversant HEENT: Left frontal craniotomy with bandaging, oropharynx is clear, extraocular movements are intact, pupils equal round reactive to light Neuro: Does have some issues with expressive aphasia, cranial nerves 2-12 otherwise intact, motor and sensation intact Cardiovascular: Regular rate and rhythm Pulmonary: Clear to auscultation GI: Soft nontender nondistended bowel sounds are present Extremities: No cyanosis clubbing or edema Skin: No skin leak WBC 13.32 10^3/uL (3.80-9.50) H 11/28/18 07:45 RBC 5.07 10^6/uL (4.18-5.33) 11/28/18 07:45 Hgb 15.3 g/dL (12.6-16.3) 11/28/18 07:45 POC Hgb 15.0 gm/dL (12.6-16.3) 11/28/18 07:44 Hct 46.5 % (38.0-47.0) 11/28/18 07:45 POC Hct 44 % (38-47) 11/28/18 07:44 MCV 91.7 fL (81.5-99.8) 11/28/18 07:45 MCH 30.2 pg (27.9-34.1) 11/28/18 07:45 MCHC 32.9 g/dL (32.4-36.7) 11/28/18 07:45 RDW 12.0 % (11.5-15.2) 11/28/18 07:45 Plt Count 343 10^3/uL (150-400) 11/28/18 07:45 MPV 10.6 fL (8.7-11.7) 11/28/18 07:45 Neut % (Auto) 86.2 % (39.3-74.2) H 11/28/18 07:45 Lymph % (Auto) 10.4 % (15.0-45.0) L 11/28/18 07:45 Floyd % (Auto) 2.6 % (4.5-13.0) L 11/28/18 07:45 Eos % (Auto) 0.0 % (0.6-7.6) L 11/28/18 07:45 Baso % (Auto) 0.3 % (0.3-1.7) 11/28/18 07:45 Nucleat RBC Rel Count 0.0 % (0.0-0.2) 11/28/18 07:45 Absolute Neuts (auto) 11.50 10^3/uL (1.70-6.50) H 11/28/18 07:45 Absolute Lymphs (auto) 1.38 10^3/uL (1.00-3.00) 11/28/18 07:45 Absolute Monos (auto) 0.34 10^3/uL (0.30-0.80) 11/28/18 07:45 Absolute Eos (auto) 0.00 10^3/uL (0.03-0.40) L 11/28/18 07:45 Absolute Basos (auto) 0.04 10^3/uL (0.02-0.10) 11/28/18 07:45 Absolute Nucleated RBC 0.00 10^3/uL (0-0.01) 11/28/18 07:45 Immature Gran % 0.5 % (0.0-1.1) 11/28/18 07:45 Immature Gran # 0.06 10^3/uL (0.00-0.10) 11/28/18 07:45 PT 13.7 SEC (12.0-15.0) 11/28/18 07:45 INR 1.09 (0.83-1.16) 11/28/18 07:45 APTT 28.8 SEC (23.0-38.0) 11/28/18 07:45 POC Sodium 141 mEq/L (135-145) 11/28/18 07:44 Sodium 139 mEq/L (135-145) 11/28/18 07:45 POC Potassium 3.8 mEq/L (3.3-5.0) 11/28/18 07:44 Potassium 4.3 mEq/L (3.5-5.2) 11/28/18 07:45 POC Chloride 103 mEq/L (97-110) 11/28/18 07:44 Chloride 103 mEq/L (97-110) 11/28/18 07:45 Carbon Dioxide 23 mEq/l (22-31) 11/28/18 07:45 POC Total CO2 22 mEq/L (22-31) 11/28/18 07:44 Anion Gap 13 mEq/L (6-14) 11/28/18 07:45 POC BUN 14 mg/dL (7-23) 11/28/18 07:44 BUN 15 mg/dL (7-23) 11/28/18 07:45 Creatinine 0.7 mg/dL (0.6-1.0) 11/28/18 07:45 POC Creatinine 0.6 mg/dL (0.6-1.0) 11/28/18 07:44 Estimated GFR > 60 11/28/18 07:45 Glucose 124 mg/dL (70-100) H 11/28/18 07:45 POC Glucose 131 mg/dL (70-100) H 11/28/18 07:44 Calcium 9.8 mg/dL (8.5-10.4) 11/28/18 07:45 POC Troponin I 0.00 ng/mL (0.00-0.08) 11/28/18 07:58 Patient ABO/Rh O POSITIVE 11/30/18 08:00 Antibody Screen NEGATIVE 11/30/18 08:00 11/28/2018 MRI of the brain demonstrates a left frontal lobe mass measuring up to 4 cm in size with abnormal enhancement. Assessment plan: Ivone is a very pleasant 63-year-old female with history of stage II breast cancer diagnosed in 2013 now with a brain mass concerning for possible glioma. 1. Glioma, possible glioblastoma multiforme: Initial pathology was concerning for a glioma. The final pathology will probably take a week including prognostic testing with regards to IDH and methylation status. We reviewed the natural history of glioblastoma multiforme. I have recommended the postoperatively that she proceed with chemotherapy and radiation followed by adjuvant chemotherapy. I have offered to arrange follow-up for her here at the [facility] in [place]. I placed follow-up with our medical oncologist and rad/onc here. 2. Aphasia 3. Seizure prophylaxis: On Keppra 4. History of breast cancer: She is followed at the [facility]. Currently with no evidence of disease.
--- NOTE | 2018-12-01 12:29 | PDGENHP ---
History and Physical - Chief Complaint difficulties speaking - History of Present Illness Mother is a very pleasant unfortunate 63-year-old female with a history of advanced breast cancer status post chemotherapy and bilateral mastectomies in 2013 who initially sleep presented to the [facility] Emergency Department with new word-finding difficulties and inability to speak. CCH she has felt well until the last 1-2 days she had increasing difficulties with word finding complete sentences. He denies fevers, chills, nausea vomiting, weakness , tingling, vision or hearing changes. She has reported increasing headaches over the last 3-4 weeks. She takes Aleve which partially alleviates her headaches. She underwent imaging of her brain and was found to have a new frontal mass. Neurosurgery was consulted and she underwent frontal craniectomy with resection of tumor. CONSULT I was asked by Dr. Mackey of Neurosurgery to evaluate this patient for postoperative ICU care in the setting of new aphasia and brain tumor History Information - Allergies/Home Medication List Allergies/Adverse Reactions: No Known Allergies Allergy (Verified 11/28/18 08:59) Home Medications: ZOLPIDEM TARTRATE [Ambien CR 12.5 mg] 12.5 mg PO HS PRN 06/25/13 [Last Taken ] LORazepam [Ativan (*)] 1 - 3 mg PO DAILY PRN 07/21/17 [Last Taken 11/27/18] Cyclobenzaprine [Flexeril 10 MG (RX)] 10 mg PO TID PRN 11/28/18 [Last Taken ] Ibuprofen [Motrin (*)] 200 mg PO DAILY PRN 11/28/18 [Last Taken Unknown] Liothyronine Sodium [Cytomel 5 mcg (*)] 5 mcg PO DAILY 11/28/18 [Last Taken ] I have personally reviewed and updated: family history, medical history, social history, surgical history - Past Medical History cancer Additional medical history: breast cancer, hypothyroidism - Surgical History Reports: mastectomy - Family History Positive for: CAD, non-pertinent - Social History Smoking Status: Never smoked Review of Systems Review of Systems: ROS: 10pt was reviewed & negative except for what was stated in HPI & below Physical Exam Physical Exam: Temp Pulse Resp BP Pulse Ox 37.2 C 58 L 16 122/74 H 92 12/01/18 05:00 12/01/18 10:00 12/01/18 10:00 12/01/18 10:00 12/01/18 10:00 O2 (L/minute) 1 Constitutional: no apparent distress, appears nourished Eyes: PERRL, anicteric sclera, EOMI Ears, Nose, Mouth, Throat: moist mucous membranes, hearing normal, ears appear normal Cardiovascular: regular rate and rhythym, no murmur, rub, or gallop Respiratory: no respiratory distress, clear to auscultation Gastrointestinal: normoactive bowel sounds, soft, non-tender abdomen Genitourinary: no bladder fullness Skin: warm, normal color Musculoskeletal: full muscle strength, no muscle tenderness Neurologic: AAOx3, sensation intact bilaterally, CN II-XII Intact, other ( Normal speech without word-finding difficulties, frontal bandage in place) Psychiatric: interacting appropriately, not anxious Lymph, Heme, Immunologic: No ecchymoses, No petechiae Lab Data & Imaging Review 11/28/18 07:45 11/28/18 07:45 WBC 13.32 10^3/uL (3.80-9.50) H 11/28/18 07:45 RBC 5.07 10^6/uL (4.18-5.33) 11/28/18 07:45 Hgb 15.3 g/dL (12.6-16.3) 11/28/18 07:45 POC Hgb 15.0 gm/dL (12.6-16.3) 11/28/18 07:44 Hct 46.5 % (38.0-47.0) 11/28/18 07:45 POC Hct 44 % (38-47) 11/28/18 07:44 MCV 91.7 fL (81.5-99.8) 11/28/18 07:45 MCH 30.2 pg (27.9-34.1) 11/28/18 07:45 MCHC 32.9 g/dL (32.4-36.7) 11/28/18 07:45 RDW 12.0 % (11.5-15.2) 11/28/18 07:45 Plt Count 343 10^3/uL (150-400) 11/28/18 07:45 MPV 10.6 fL (8.7-11.7) 11/28/18 07:45 Neut % (Auto) 86.2 % (39.3-74.2) H 11/28/18 07:45 Lymph % (Auto) 10.4 % (15.0-45.0) L 11/28/18 07:45 Wright % (Auto) 2.6 % (4.5-13.0) L 11/28/18 07:45 Eos % (Auto) 0.0 % (0.6-7.6) L 11/28/18 07:45 Baso % (Auto) 0.3 % (0.3-1.7) 11/28/18 07:45 Nucleat RBC Rel Count 0.0 % (0.0-0.2) 11/28/18 07:45 Absolute Neuts (auto) 11.50 10^3/uL (1.70-6.50) H 11/28/18 07:45 Absolute Lymphs (auto) 1.38 10^3/uL (1.00-3.00) 11/28/18 07:45 Absolute Monos (auto) 0.34 10^3/uL (0.30-0.80) 11/28/18 07:45 Absolute Eos (auto) 0.00 10^3/uL (0.03-0.40) L 11/28/18 07:45 Absolute Basos (auto) 0.04 10^3/uL (0.02-0.10) 11/28/18 07:45 Absolute Nucleated RBC 0.00 10^3/uL (0-0.01) 11/28/18 07:45 Immature Gran % 0.5 % (0.0-1.1) 11/28/18 07:45 Immature Gran # 0.06 10^3/uL (0.00-0.10) 11/28/18 07:45 PT 13.7 SEC (12.0-15.0) 11/28/18 07:45 INR 1.09 (0.83-1.16) 11/28/18 07:45 APTT 28.8 SEC (23.0-38.0) 11/28/18 07:45 POC Sodium 141 mEq/L (135-145) 11/28/18 07:44 Sodium 139 mEq/L (135-145) 11/28/18 07:45 POC Potassium 3.8 mEq/L (3.3-5.0) 11/28/18 07:44 Potassium 4.3 mEq/L (3.5-5.2) 11/28/18 07:45 POC Chloride 103 mEq/L (97-110) 11/28/18 07:44 Chloride 103 mEq/L (97-110) 11/28/18 07:45 Carbon Dioxide 23 mEq/l (22-31) 11/28/18 07:45 POC Total CO2 22 mEq/L (22-31) 11/28/18 07:44 Anion Gap 13 mEq/L (6-14) 11/28/18 07:45 POC BUN 14 mg/dL (7-23) 11/28/18 07:44 BUN 15 mg/dL (7-23) 11/28/18 07:45 Creatinine 0.7 mg/dL (0.6-1.0) 11/28/18 07:45 POC Creatinine 0.6 mg/dL (0.6-1.0) 11/28/18 07:44 Estimated GFR > 60 11/28/18 07:45 Glucose 124 mg/dL (70-100) H 11/28/18 07:45 POC Glucose 131 mg/dL (70-100) H 11/28/18 07:44 Calcium 9.8 mg/dL (8.5-10.4) 11/28/18 07:45 POC Troponin I 0.00 ng/mL (0.00-0.08) 11/28/18 07:58 Patient ABO/Rh O POSITIVE 11/30/18 08:00 Antibody Screen NEGATIVE 11/30/18 08:00 Interpretation: 12/01/18 MRI brain-post operative changes with vasogenic edema present. 11/28/2018 CT head 2.5 cm mass in left frontal lobe with significant vasogenic edema. 11/28/2018 MRI brain with and without contrast-large irregular peripheral enhancing mass in left frontal lobe as well and sensing lesion posterior left frontal lobe. Concern for glioblastoma. Metastatic lesion less likely. Visualized and Interpreted EKG results: Yes Assessment & Plan Assessment: 63 yo F w h/o breast cancer, new headaches found to have L frontal mass s/p resection 11/30/[address] Oleary # left frontal mass. Status post resection 11/30/2018. Imaging concern for malignancy. Will need follow-up gross pathology # headaches. Improved today. Suspect secondary to above # aphasia. Improved. Due to frontal mass with vasogenic edema # hypothyroidism. # breast cancer. Status post bilateral mastectomies and chemotherapy in 2013. PLAN # clinically doing excellent postoperatively. # continue neuro checks # keppra + decadron # continue home medications # ambulate TID # follow up path # lovenox per NS # okay to transfer to med surg with monitoring from a critical care standpoint # SCDs
[2018-12-01] MEDS ORDERED: ZOLPIDEM TARTRATE 5 MG TAB PO PRN (12:36)
--- NOTE | 2018-12-01 13:03 | ASMTCMCOM ---
CM Note CM Note Notes: Patient doing very well, PT/OT recommend d/c home with family. 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 CM available for any d/c needs although none anticipated. Current CM Discharge plan: home independent Date Signed: 12/01/2018 01:02 PM Electronically Signed By:Nickie Baca RN
--- NOTE | 2018-12-01 16:52 | HOSPPROG ---
Hospitalist Progress Note Assessment/Plan: 1. Brain Mass - CT Head noted large L sided mass w/ mass effect on admission - MRI Brain performed which showed large irregular peripherally enhancing mass L frontal lobe with irregular marginal nodular enhancement as well as enhancing lesion L posteroir frontal lobe periventricular location, findings most compatible with glioblastoma multiform, metastatic lesion is felt to be possible but less likely per radiology read - Neurosurgery consulted, s/p OR on 11/30 for surgical resection - CT C/A/P ordered to evaluate for primary/metastatic disease which was negative - PT/OT/INDUSTRIAL WASTE INSPECTOR - Neurochecks per Neurosurgery 2. Aphasia - 2/2 to brain mass as above, improving - INDUSTRIAL WASTE INSPECTOR consult 3. Leukocytosis - in setting of brain mass with mass effect - Continue to monitor, now patient on steroids as well 4. Breast Cancer - S/p chemo and b/l mastectomy in 2013 - Follows with [facility] - CT CAP as above - Consulted Oncology this AM 5. Hypothyroidism - Continue home meds FEN: Regular DVT PPx: Lovenox Code: FULL Dispo: Pending clinical course Subjective: Patient with some improvement in word finding Objective: Vital Signs Temp Pulse Resp BP Pulse Ox 36.7 C 70 14 111/60 91 L 12/01/18 16:00 12/01/18 16:00 12/01/18 16:00 12/01/18 16:00 12/01/18 16:00 11/30/18 12/01/18 12/02/18 05:59 05:59 05:59 Intake Total 3970 Output Total 1550 Balance 2420 PT 13.7 SEC (12.0-15.0) 11/28/18 07:45 INR 1.09 (0.83-1.16) 11/28/18 07:45 - Physical Exam Constitutional: no apparent distress Eyes: PERRL Ears, Nose, Mouth, Throat: moist mucous membranes Cardiovascular: regular rate and rhythym Respiratory: no respiratory distress Gastrointestinal: soft, non-tender abdomen Skin: warm Musculoskeletal: full muscle strength Neurologic: AAOx3 Psychiatric: interacting appropriately ICD10 Worksheet Patient Problems: Problems Problem Status Onset Aphasia Acute Brain abscess, tuberculous, with histological diagnosis Acute Frontal mass of brain Acute
--- NOTE | 2018-12-01 17:47 | PDCONSULT ---
Break Out Man Note: NEUROSURGERY STAFF I have seen and evaluated the patient. She is doing extremely well. Her speech has improved a lot again and she is doing very well with her motor function. She has done PT/OT and speech today and should be ready for d/c tomorrow. I am quite pleased with her MRI although there is a tiny residual of a satellite nodule deep to the tumor cavity. Given that more than 98% of the tumor is removed, I think it is best at this time to await the pathology. If at that time it is best to go in and remove that, we can certainly do it. I updated the patient at the bedside and her , Adolfo, over the phone. Mamta
[2018-12-01] MEDS: HEPARIN 5,000 UNIT/0.5 ML INJ SC SCH (20:57)
[2018-12-01] MEDS ORDERED: HEPARIN 20,000 UNIT/ML VIAL SC SCH (21:00)
[2018-12-02] MEDS: DEXAMETHASONE 4 MG/ML VIAL IVP SCH (06:06)
[2018-12-02 08:26] VITALS: BP 108/57
--- NOTE | 2018-12-02 08:27 | NEUSURGPN ---
Date of Surgery: 11/30/18 Post Op Day: 2 Assessment/Plan: Assessment: 63 yo female s/p left frontal craniotomy for resection of left frontal brain mass POD #2. Presenting symptoms were confusion and aphasia. Pt with some continued but improved word finding difficulties post op. Confusion has cleared Plan: -Post op MRI reviewed with Dr Oleary and shows about 98% resection-awaiting final Path results that will determine next step in care (ie more surgery or chemo/radiation). There is a small area of residual nodule on Post op MRI. -plan for transfer to floor today vs dc -Continue Decadron 4mg q6-with 2 weeks taper-rx on chart -Keppra 750mg BID -Q2 hour neuro checks until transfer to floor then ok for q4 -PT/OT/COMMERCIAL ESCROW ASSISTANT-CPM -pending COMMERCIAL ESCROW ASSISTANT/Cognitive eval -DVT: TEDs, SCDs- Heparin 5000 subq OK -Follow final path- intraop frozen suspect GBM -dispo-pt may need some HHC -D/W Dr Koch -warning signs given -Please call with any changes in neuro/motor exam Subjective: Awake and alert. NAD. Eating/drinking and voiding. No f/c/n/v/d. No rowley/neck/ chest/abd or gu complaints Objective: NAD AAO x 4 EOMI, PERRLA CN 2-12 grossly intact incision CDI Speech clear and fluent, word finding difficulty significant when occurs but not present when discussing familiar subjects-improved overall no facial droop, no pronator drift PAGAN x 4, 5/5= SILT Neuro Check Frequency: per routine Urinary Catheter in Place: No - Physician Discussed Patient with Dr.: Oleary Neurosurgery Physical Exam - Vitals, I&O, Labs I and O 12/01/18 12/02/18 12/03/18 05:59 05:59 05:59 Intake Total 3970 300 Output Total 1550 Balance 2420 300 Weight 60.7 kg Intake: Oral (ml) 1200 300 IV Intake (ml) 2500 IV Infused (ml) 270 NS W/ 20 KCl/L 1,000 ml @ 270 100 mls/hr IV CONT RIGO Rx#:[id number] Output: Urine (ml) 1500 Catheter 1300 Toilet 200 Estimated Blood Loss (ml) 50 Other: Intake Quantity Yes Sufficient Vital Signs Temp Pulse Resp BP Pulse Ox 36.6 C 53 L 14 126/70 H 91 L 12/02/18 06:09 12/02/18 06:09 12/01/18 21:00 12/02/18 06:09 12/02/18 06:09 ICD10 Worksheet Patient Problems: Problems Problem Status Onset Aphasia Acute Brain abscess, tuberculous, with histological diagnosis Acute Frontal mass of brain Acute
[2018-12-02] MEDS ORDERED: *MD ORDERING ONLY-DEXAMETHASONE TAPER IVP/PO SCH (08:30)
[2018-12-02] MEDS: levETIRAcetam 250 MG TAB PO SCH (09:27)
[2018-12-02] MEDS: LIOTHYRONINE SODIUM 5 MCG TAB PO SCH (09:27)
[2018-12-02] MEDS: HEPARIN 5,000 UNIT/0.5 ML INJ SC SCH (09:27)
--- NOTE | 2018-12-02 11:48 | GDS ---
[f rep st] DISCHARGE SUMMARY DISCHARGE DIAGNOSES: 1. Brain mass, status post resection. 2. Aphasia. 3. Leukocytosis. 4. History of breast cancer. 5. Hypothyroidism. CONSULTATIONS: Neurosurgery. HISTORY OF PRESENT ILLNESS: A pleasant 63-year-old female with history of breast cancer, status post chemotherapy and bilateral mastectomies in 2013, hypothyroidism, presents to [facility] for aphasia. She was in her normal state of health until a couple days ago when she had difficulty word finding, completing full sentences. Denied facial droop, weakness, numbness, or tingling. CT in the ER: Left posterior frontal lobe mass with small amount of [id number] shift. HOSPITAL COURSE BY PROBLEM: 1. Brain mass: s/p 98% resection by Dr. Oleary. Awaiting path. Continue to continue a Decadron taper and Keppra. FU Dr. Oleary in 2 to 3 weeks. 2. Aphasia: due to above. Outpatient speech therapy. 3. Hypothyroidism. Cytomel. DISPOSITION: Patient is stable for discharge home. NEW MEDICATIONS: Keppra and Decadron taper. FOLLOWUP: With Dr. Oleary. LABS PENDING: Biopsy pathology. PHYSICAL EXAMINATION: VITAL SIGNS: Temperature 36.4, blood pressure 108/57, heart rate in the 60s, respirations 20, 91% on room air. GENERAL: She is well appearing, no acute distress. HEENT: PERRLA. Moist mucous membranes. Cranial incision stapled, healing well. CV: Regular rate and rhythm. LUNGS: Clear. ABDOMEN: Soft, nontender. MUSCULOSKELETAL: Moving all 4 extremities. NEURO: 2 through 12 intact. PSYCHIATRIC: She is answering questions appropriately. was at bedside. Questions answered. TIME SPENT ON DISCHARGE: Greater than 30 minutes coordinating DC and d/w NSGY. /[id number]/MODL MTDD
[2018-12-02] MEDS: ACETAMINOPHEN 325 MG TAB PO PRN (12:02)
--- NOTE | 2018-12-02 12:19 | SOAPPROG ---
SERA Progress Note Assessment/Plan: E&M for brain mass I spent approximately 20-30 minutes with the patient has been in [id number] consultation. I explained to them that the MRI is very suspicious for a primary malignancy of the brain most likely glioblastoma multiforme. We need to get the final path to confirm this particularly since she has a previous history of breast cancer. I explained to them that the standard treatment is to try to resect as much as possible and there is report of about a 98% resection. This is followed by postoperative radiation with concurrent temozolomide daily. Once that is completed then patients go on monthly adjuvant temozolomide for 6 months. I explained the side effects of chemotherapy which are primarily nausea and a low blood counts. Patients also can have increased risk of certain infections such as shingles and PCP so we placed him on prophylaxis for that as well. I explained to him that it is very difficult cancer to cure but we can prolong life with this treatment and usually do so without significant complications lowering their quality of life. I explain to him that we would like to get her set up with the radiation oncologist for consultation and also a visit in our office for chemotherapy teaching. Once we get the path confirmed I will send in a prescription for temozolomide. She will start the medication on the day of starting radiation and we will monitor her weekly while on the drug. Subjective: She is feeling better and ready to go home. Her was with her. Objective: Vital Signs Temp Pulse Resp BP Pulse Ox 36.4 C 68 20 108/57 L 91 L 12/02/18 08:00 12/02/18 08:00 12/02/18 08:00 12/02/18 08:00 12/02/18 08:00 12/01/18 12/02/18 12/03/18 05:59 05:59 05:59 Intake Total 3970 300 Output Total 1550 Balance 2420 300 PT 13.7 SEC (12.0-15.0) 11/28/18 07:45 INR 1.09 (0.83-1.16) 11/28/18 07:45 Physical Exam - Physical Exam General Appearance: no apparent distress Neuro/Psych: other (some word finding problems) ICD10 Worksheet Patient Problems: Problems Problem Status Onset Aphasia Acute Brain abscess, tuberculous, with histological diagnosis Acute Frontal mass of brain Acute
[2018-12-02] MEDS ORDERED: DEXAMETHASONE 4 MG TAB PO SCH (14:00)
[2018-12-05] MEDS ORDERED: DEXAMETHASONE 4 MG TAB PO SCH (09:00)
--- NOTE | 2018-12-06 10:26 | GOP ---
[f rep st] OPERATIVE REPORT DATE OF OPERATION: 11/30/2018 SURGEON: Abiel Oleary MD NEUROSURGEON: Abiel Oleary MD. KNITTER HELPER: Sarita Ocampo PA-C. ANESTHESIA: General endotracheal. PREOPERATIVE DIAGNOSIS: Left frontal glioma. POSTOPERATIVE DIAGNOSIS: Left frontal glioma. PROCEDURE PERFORMED: 1. Left frontotemporal craniotomy. 2. Microsurgical gross total resection of left frontal intrinsic brain tumor. 3. Use of Stealth stereotactic navigation for volumetric gross total resection of tumor. 4. Use of the intraoperative ultrasound. FINDINGS: A successful tumor resection. SPECIMENS: Left frontal brain mass for frozen section and permanent pathology. ESTIMATED BLOOD LOSS: Blood loss was 50 cc. INDICATIONS: Ivone Wong is a 63-year-old woman who has a history of breast cancer. She presented a few days previous with aphasia. MRI of the brain revealed a several centimeter mass in the left frontal operculum in the area of the speech cortex. She was managed on steroids for a few days and ultimately, her speech improved somewhat. We discussed the options and the likelihood that despite her previous cancer history, this was probably a primary brain tumor and we elected to proceed with surgical resection. We did discuss awake craniotomy given the involvement of her speech. However, given the profound nature of her aphasia, it does not appear that we would be able to have any reliable mapping. We, therefore, elected to do the surgery asleep. DESCRIPTION OF PROCEDURE: After informed consent was obtained from the patient , the patient was brought to the operating room and was placed in a supine position on the operating table. A formal time-out was performed, identifying the patient by name, medical record number and date of . Preoperative antibiotics were given. The endotracheal tube was placed and general endotracheal anesthesia was smoothly induced. The patient's head was placed in Henriquez pins and turned slightly toward the right side. The Stealth was registered to the scalp and checked for accuracy using known surface landmarks. This was then used to localize the area of the tumor and a standard curvilinear incision was marked, exposing the entirety of the tumor. 20 mL of 0.25% Marcaine with epinephrine was infiltrated in the skin for hemostasis. The head was prepped and draped in the normal sterile fashion. The skin incision was made using a 10 blade. Subcutaneous tissues were dissected using monopolar electrocautery and the superficial temporal artery was preserved. Sammy clips were placed for hemostasis. The temporalis muscle and fascia were opened in line with the incision and the single myocutaneous flap was retracted anteriorly. Three sonia holes were then created in standard pterional fashion and a pterional craniotomy with a slight frontal extension was turned using the craniotome. All bleeding was controlled using bipolar electrocautery and Gelfoam and dural tack-up stitches were placed. At this point, the ultrasound was used to be sure that we had encompassed the area of the tumor and the tumor was well visualized in the frontal operculum. The navigation was also used to be sure that the tumor was well localized. The dura was then opened in a curvilinear fashion with its base at the sphenoid wing and the brain was fully exposed. Next, the operative microscope was brought into the field and the remainder of the procedure was performed under high-powered magnification. The location where the tumor came closest to the surface was easily identified and a small corticectomy was made. This was in the area of the sulcus posterior to the frontal operculum. The tumor was easily identified and a few small pieces were sent for frozen pathology, which returned as a likely glioma. Next, using dissectors and bipolar forceps and suction, the tumor was carefully dissected from the normal brain. We continued around in this fashion removing other pieces of tumor for permanent pathology. The ultrasonic aspirator was also used to debulk the tumor internally. We continued around the cavity and the normal brain interface was identified around the entirety of the tumor. Once we had removed the entirety of the tumor, the cavity was inspected and checked with the navigation to be sure that we had covered all the areas that we had expected. The cavity was then lined with Surgicel and copiously irrigated using sterile saline. At this point, the dura was closed using interrupted 4-0 Nurolon. The temporalis muscle and its fascia were closed using interrupted 2- 0 Vicryl. The galea was closed using interrupted 2-0 Vicryl and the skin was closed using a running 4-0 Monocryl. The patient was then awakened in the operating room where she was extubated and transferred to the PACU in stable condition. There were no operative complications. The patient's exam was actually slightly improved with respect to her speech postoperatively. FLUIDS AND URINE OUTPUT: Per the Anesthesia record. DRAINS: There were no drains. COMPLICATIONS: There were no complications. /[id number]/MODL MTDD
--- NOTE | 2018-12-07 08:02 | PQFORM ---
PHYSICIAN QUERY FORM Needs Your Response This query form is being sent to you to assure this patient record is coded properly. Please respond to the question below: [facility] MANAGER QUESTION: Dr Koch The Impression on the Pathology reports this patients Brain tumor as a Glioblastoma. Please review and indicate if you agree with Diagnosis of Glioblastoma. _x_ Yes __ No __ Other (Please Specify ) __ Undetermined Thank You Linda RUSSO Biological Plant Operator INSTRUCTIONS FOR RESPONSE: Answer question by clicking on the "Edit Document" button. Move cursor to area below the stars. When complete, hit "Save." Click on the "Sign" button, then click "Sign" again. Type in your PIN and hit "Enter." MTDD
[2018-12-08] MEDS ORDERED: DEXAMETHASONE 4 MG TAB PO SCH (09:00)
[2018-12-12] MEDS ORDERED: DEXAMETHASONE 4 MG TAB PO SCH (09:00)
== END 2018-12-02 13:40 | disposition home or self-care (01) | DRG 26 ==
LOC: EDUNIT# → SUPCPDRO 07:38 → F3N 10:39 → F2N 11-30 09:29
PROVIDERS: ADMIT Internal Medicine; ATTEND Internal Medicine
PROC: 00B00ZZ Excision of Brain, Open Approach (ICD-10-PCS; principal; 2018-11-30 09:00)
DX: C71.1 Malignant neoplasm of frontal lobe (principal); R47.01 Aphasia; E03.9 Hypothyroidism, unspecified; Z85.3 Personal history of malignant neoplasm of breast
CPT/HCPCS: 82435-PO; 82565-PO; 82947-PO; 84132-PO; 84295-PO; 84484-ER; 84520-PO; 85014-ER; 92507-GN; 92523-GN; 97161-GP; 97164-GP; 97166-GO; 97530-GO; A9585; C1713; J0171; J0690; J1100; J1580; J1644; J1650; J2370; J2405; J2704; J3010; Q9967